=== PATIENT | female | born 1995 | race Caucasian/White ===

== ENCOUNTER 2017-07-07 09:55 | Emergency (ER) | payer OTHER ==
[~2017-07-07] VITALS: Ht 154.9 cm; Wt 60.0 kg
[2017-07-07 09:57] VITALS: BP 123/69; PULSE 84; RESP 16; TEMP 98.6; O2SAT 95
--- NOTE | 2017-07-07 10:06 | PD ---
HPI Chief Complaint: Cold / Flu Symptoms Time Seen by Provider: 10:05 Travel History International Travel<30 days: No Contact w/Intl Traveler<30days: No Traveled to known affect area: No History of Present Illness HPI 22-year-old female presents to emergency department with upper respiratory symptoms including headache, sore throat, cough, and lung congestion which is worse at night. Patient is unsure she's had a fever. Patient states her daughter was just seen for this and the pediatric pod, and diagnosed with upper respiratory infection. Patient denies heartburn, shortness of breath, wheezing, or productive cough. She has no abdominal or flank pain. She states that symptoms started 4 days ago. She has no known drug allergies. PFSH Past Medical History ?: Not LMP: 06/2017 Social History Alcohol Use: No Tobacco Use: No Substance Use: No Allergies-Medications (Allergen,Severity, Reaction): Coded Allergies: No Known Allergies (Unverified , 07/07/17) Reported Meds & Prescriptions Reported Meds & Active Scripts Active No Active Prescriptions or Reported Medications Review of Systems Except as stated in HPI: all other systems reviewed are Neg General / Constitutional: No: Fever Eyes: No: Visual changes HENT: Positive: Sore Throat, Rhinitis, Rhinorrhea, Congestion, No: Headaches, Vertigo, Lightheadedness, Neck Stiffness, Neck Pain, Dental Difficulties, Ear Discharge, Earache Cardiovascular: No: Chest Pain or Discomfort Respiratory: Positive: Cough, No: Shortness of Breath Gastrointestinal: No: Abdominal Pain Genitourinary: No: Dysuria Musculoskeletal: No: Pain Skin: No Rash Neurologic: No: Weakness Psychiatric: No: Depression Endocrine: No: Polydipsia Hematologic/Lymphatic: No: Easy Bruising Physical Exam Narrative GENERAL: Patient is in no acute distress SKIN: Warm and dry. Color. Normal turgor. No rash. HEAD: Atraumatic. Normocephalic. EYES: Pupils equal and round. No scleral icterus. No injection or drainage. ENT: No nasal bleeding or discharge. Mucous membranes pink and moist. Pharynx has mild erythema and cobblestoning. No significant lymphadenopathy. TMs are clear bilaterally. NECK: Trachea midline. Supple with mild generalized tenderness, without significant lymphadenopathy. CARDIOVASCULAR: Regular rate and rhythm. RESPIRATORY: No accessory muscle use. Clear to auscultation. Breath sounds equal bilaterally. GASTROINTESTINAL: Abdomen soft, non-tender, nondistended. Hepatic and splenic margins not palpable. MUSCULOSKELETAL: Extremities without clubbing, cyanosis, or edema. No obvious deformities. NEUROLOGICAL: Awake and alert. No obvious cranial nerve deficits. Motor grossly within normal limits. Five out of 5 muscle strength in the arms and legs. Normal speech. PSYCHIATRIC: Appropriate mood and affect; insight and judgment normal. Data Data Last Documented VS Vital Signs Date Time Temp Pulse Resp B/P (MAP) Pulse Ox O2 Delivery O2 Flow Rate FiO2 07/07/17 09:57 98.6 84 16 123/69 (87) 95 MDM Medical Decision Making Medical Screen Exam Complete: Yes Emergency Medical Condition: Yes Differential Diagnosis Upper respiratory infection. Viral pharyngitis. Sore throat. Narrative Course Patient is medically stable at time of exam. Patient has an upper respiratory infection which is viral in nature. I explained to patient that antibiotics are not warranted at this time. Patient is to use [id number] Tylenol, ibuprofen, and cough medicine of choice. Work note is given for the next 2 days. Patient should follow with her primary care physician if symptoms do not improve. Diagnosis Primary Impression: Upper respiratory infection, viral Referrals: Primary Care Physician Patient Instructions: General Instructions Departure Forms: Work Release Enter return to work date: Jul 10, 2017 Additional Instructions: Patient has an upper respiratory infection which is viral in nature. I explained to patient that antibiotics are not warranted at this time. Patient is to use [id number] Tylenol, ibuprofen, and cough medicine of choice. Work note is given for the next 2 days. Patient should follow with her primary care physician if symptoms do not improve. Med/Other Pt SpecificInfo: No Meds Exist/No RX given Scripts No Active Prescriptions or Reported Meds Disposition: 01 DISCHARGE HOME Condition: Stable Hussein Bhandari Jul 07, 2017 10:05
[2017-07-07] MEDS ORDERED: SODIUM CHLOR 0.9% 1000 ML INJ 1,000 ML IV ONE (10:45)
[2017-07-07] MEDS ORDERED: METOCLOPRAMIDE INJ 10 MG in SODIUM CHLORIDE 0.9% INJ 50 ML IV ONE (10:45)
== END 2017-07-07 10:40 | disposition home or self-care (01) ==
LOC: NEPD 09:55
DX: J06.9 Acute upper respiratory infection, unspecified (principal)
CPT/HCPCS: 99282